=== PATIENT | male | born 2000 | race Two or more races ===

== ENCOUNTER 2025-06-19 10:09 | Outpatient (CLI) | payer MEDICAID ==
[2025-06-19] MEDS ORDERED: EZ PAQUE SUSP 12OZ BTL ONE (12:09)
[2025-06-19] MEDS ORDERED: BARIUM SULFATE 98% 340 GM PWDR ONE (12:12)
--- NOTE | 2025-06-19 14:08 | DVH ---
EXAM: XY ESOPHAGUS BARIUM SWALLOW DATE OF SERVICE: 06/19/2025 12:26 PM ORDERING PHYSICIAN: QUIQUE PINA REASON FOR EXAM: EVALUATE FOR ASPIRATION COUGHING WITH EATING TECHNIQUE: Modified barium swallow with video fluoroscopy performed in association with speech patho logy service. Technical Quality: diagnostic COMPARISON: None FINDINGS: Fluoroscopic guidance provided for modified barium swallow in conjunction with speech pathology servi ce. No obvious laryngeal penetration or aspiration. Fluoro time: 1.3 min IMPRESSION: Fluoroscopic guidance. No obvious aspiration. Complete and detailed report and findings will be provided separately by the speech pathology service . End of Report
== END 2025-06-19 17:00 | disposition home or self-care (01) ==
LOC: XYW 10:09
PROVIDERS: ATTEND Internal Medicine Gastroenterology
DX: K21.9 Gastro-esophageal reflux disease without esophagitis (principal); K59.00 Constipation, unspecified
CPT/HCPCS: 74220; 92610